=== PATIENT | male | born 1960 | race African-American/Black ===

== ENCOUNTER 2020-04-15 17:01 | Emergency (ER) | payer MEDICAID, OTHER ==
[~2020-04-15] VITALS: Ht 188 cm; Wt 79.1 kg
--- NOTE | 2020-04-15 17:18 | NUR ---
BREAK RN: THIS IS A 59 YO MALE PT TITUS [place] FROM OUTSIDE A BAR WHERE [facility] PT C/O CHEST PAIN, TENDER TO PALP. PT REPORTS PAIN IS "SHARP" AND "100" OUT OF 10. PT DROWSY WITH ETOH ODOR AND FALLS ASLEEP EASILY. PT AWAKENS EASILY TO NAME BEING CALLED. PT ADMITS TO DRINKING "HALF A PINT" TODAY. PT ANSWERING ALL QUESTIONS APPROPRIATELY. PT ON CONT BP, CARDIAC AND SPO2 MONITORS. CALL LIGHT WITHIN REACH.
--- NOTE | 2020-04-15 17:41 | NUR ---
REPORT RECEIVED FROM GEENA ACUNA. PT SLEEPING IN BED, NO DISTRESS. PT REMAINS ON MONITORS, VSS. MTF. CONT TO MONITOR.
--- NOTE | 2020-04-15 18:04 | NUR ---
MEAL TRAY ORDERED FOR PT.
--- NOTE | 2020-04-15 18:24 | NUR ---
PT GIVEN MEAL TRAY.
--- NOTE | 2020-04-15 19:58 | NUR ---
PT D/C'D PER ERMD ORDERS. PT WITH STEADY GAIT, ABLE TO CARE FOR SELF. HAS ALL OWN BELONGINGS UPON D/C.
[2020-04-15 20:02] VITALS: BP 107/67
== END 2020-04-15 20:15 | disposition home or self-care (01) ==
LOC: ED 19:30
DX: F10.229 Alcohol dependence with intoxication, unspecified (principal); R07.89 Other chest pain; I45.10 Unspecified right bundle-branch block; Y90.0 Blood alcohol level of less than 20 mg/100 ml
CPT/HCPCS: 93005; 99283

== ENCOUNTER 2020-04-15 21:19 | Inpatient (IN) | payer OTHER ==
[~2020-04-15] VITALS: Ht 188 cm; Wt 82.4 kg
--- NOTE | 2020-04-15 23:09 | NUR ---
assessment made. ERP at bedside.
[2020-04-15 23:43] LABS: BASOPHILS # (AUTO) 0.02 x10^3/uL (0-0.1); BASOPHILS % (AUTO) 0 % (0-1); EOSINOPHILS % (AUTO) 0 % (1-7); LYMPHOCYTES # (AUTO) 0.61 x10^3/uL (1-3.4); LYMPHOCYTES % (AUTO) 4 % (22-44); MD NO; MEAN CORPUSCULAR HEMOGLOBIN 29.8 pg (27.5-34.5); MEAN CORPUSCULAR HGB CONC 31.8 g/dL (33.2-36.2); MEAN CORPUSCULAR VOLUME 93.7 fL (81-97); MONOCYTES # (AUTO) 0.59 x10^3/uL (0.2-0.8); MONOCYTES % (AUTO) 4 % (2-9); NEUTROPHILS # (AUTO) 15.15 x10^3/uL (1.8-6.8); NEUTROPHILS % (AUTO) 93 % (42-75); PLATELET COUNT 326 x10^3/uL (130-400); RED BLOOD COUNT 4.65 x10^6/uL (4.38-5.82); RED CELL DISTRIBUTION WIDTH 15.9 % (9.4-14.8)
[2020-04-15 23:50] LABS: ALANINE AMINOTRANSFERASE 76 U/L (12-78); ALBUMIN 3.9 g/dL (3.4-5.0); ANION GAP 21 mmol/L (5-15); CALCIUM 8.3 mg/dL (8.5-10.1); CHLORIDE 103 mmol/L (98-107); CREATININE 1.29 mg/dL (0.7-1.3)
[2020-04-15 23:52] LABS: ALKALINE PHOSPHATASE 68 U/L (45-117); BILIRUBIN,TOTAL 0.9 mg/dL (0.2-1.0); TOTAL PROTEIN 7.7 g/dL (6.4-8.2)
[2020-04-16] MEDS ORDERED: DEXTROSE 50%, 50ML SYRINGE ONE (00:19)
[2020-04-16] MEDS ORDERED: DEXTROSE 50%, 50ML SYRINGE IVPush ONE (00:30)
[2020-04-16] MEDS ORDERED: MAGNESIUM SULFATE 1 GM, THIAMINE 100 MG, FOLIC ACID 1 MG, MVI ADULT 10 ML in SODIUM CHL... IV ONE (00:30)
[2020-04-16] MEDS ORDERED: SODIUM CHLORIDE FLUSH 10ML SYR IVF ONE (00:30)
--- NOTE | 2020-04-16 00:40 | NUR ---
PT TRANSFERRED TO THIS CARE AT 0030. FIRST CONTACT: PT SLUMPED OVER IN WHEELCHAIR BEING WHEELED BACK TO ROOM, PT ABLE TO STAND AND TRASNFERRED TO GURNEY WITH STAND BY ASSIST. PT SKIN COOL TO TOUCH BUT DRY, VSS, NAD, DENIES DIZZINESS, LOC, FALLS. PT PUPILS ARE APPROX 2MM, PERRLA AND GROSS NEURO INTACT, ANOx4, FCS AND ANSWERS ALL QUESTIONS APPROPRIATELY. PT STATES HE CAME INTO BECAUSE AFTER DRINKING TODAY HE STARTED TO FEEL A LITTLE FUNNY, PT SAYS ONCE HE WAS IN THE LOBBY THAT HIS "LEGS JUST STOPPED RESPONDING." PT STATES HE DRANK ABOUT 4.5 PINTS OF WHISKEY TODAY WITH A FRIEND. PT MEDICATED PER DEC, GIVEN WARM BLANKETS FOR COMFORT. PLACED ON BP, SPO2, ECG MONITORING.
[2020-04-16] MEDS ORDERED: ONDANSETRON 2MG/ML, 2ML ONE (01:14)
[2020-04-16] MEDS ORDERED: LORazepam 2 MG/ML, 1ML ONE (01:18)
[2020-04-16] MEDS ORDERED: LORazepam 2 MG/ML, 1ML IVPush PRN (01:30)
[2020-04-16] MEDS ORDERED: ONDANSETRON 2MG/ML, 2ML IVPush ONE ×2 (01:30)
[2020-04-16 01:31] LABS: PH, VENOUS 7.166 pH (7.320-7.420)
--- NOTE | 2020-04-16 01:32 | NUR ---
PT HANGING OVER EDGE OF [facility] UPON RN ENTERING ROOM, PROJECTILE VOMITTING ONTO THE FLOOR. FULL BODY TREMORS NOTED, MD NOTIFIED. PT MEDICATED PER DEC, ROOM AND PT CLEANED UP AND GIVEN FRESH WARM BLANKETS. PT NOW RESTING WITH EYES CLOSED DENIES ADDITIONAL NEEDS AT THIS TIME. WCTM
--- NOTE | 2020-04-16 01:35 | NUR ---
NC 2L PLACED ON PT WHILE RESTING TO MAINTAIN O2 SATURATION
[2020-04-16 01:41] LABS: ACETONE, SERUM Small (20mg/dL) (Negative)
[2020-04-16] MEDS ORDERED: SODIUM CHLORIDE 0.9% 1,000 ML IV ONE (02:16)
[2020-04-16] MEDS ORDERED: SODIUM CHLORIDE FLUSH 10ML SYR IVF PRN (02:30)
--- NOTE | 2020-04-16 02:42 | NUR ---
PT RESTING IN GURNEY, LIGHTS DIMMED FOR COMFORT, NAD, VSS, WCTM. WAITING ON ADMIT BED
--- NOTE | 2020-04-16 03:33 | NUR ---
PT RESTING IN GURNEY, EYES CLOSED, VSS, NAD, RESP WNL, WCTM. WAITING FOR ADMIT BED.
--- NOTE | 2020-04-16 04:43 | NUR ---
PT SITTING UP IN [facility] EATING SANDWICH AND CHIPS. PT GIVEN SPRITE PER REQUEST. PT VSS, NAD, SKIN COLR WNL WARM AND DRY. WCTM. WAITING FOR ADMIT BED.
[2020-04-16] MEDS ORDERED: POTASSIUM CHLORIDE 20 MEQ, MVI ADULT 10 ML, FOLIC ACID 1 MG, MAGNESIUM SULFATE 1 GM in ... IV SCH (05:25)
[2020-04-16] MEDS ORDERED: hydrALAzine 20 MG/ML, 1ML IVPush PRN (05:30)
[2020-04-16] MEDS ORDERED: DOCUSATE 100 MG CAPSULE PO PRN (05:30)
[2020-04-16] MEDS ORDERED: METHOCARBAMOL 500 MG TABLET PO PRN (05:30)
[2020-04-16] MEDS ORDERED: ONDANSETRON 2MG/ML, 2ML IVPush PRN (05:30)
[2020-04-16] MEDS ORDERED: GUAIFENESIN/DM 200-20MG, 10ML UDC PO PRN (05:30)
[2020-04-16] MEDS ORDERED: CHLORDIAZEPOXIDE 25 MG CAPSULE PO PRN ×3 (05:30)
[2020-04-16] MEDS ORDERED: LORazepam 2 MG/ML, 1ML IV PRN ×5 (05:30→09:30)
[2020-04-16] MEDS ORDERED: ASA/APAP/ CAFFEINE TABLET PO PRN (05:30)
[2020-04-16] MEDS ORDERED: CHLORDIAZEPOXIDE 10 MG CAPSULE PO PRN (05:30)
--- NOTE | 2020-04-16 05:35 | NUR ---
PT RESTING ON GURNEY, EYES CLOSED, RESP HEARD AND WNL, CONDITION UNCHANGED. WCTM. WAITING ON ADMIT BED.
[2020-04-16 06:12] LABS: BASOPHILS # (AUTO) 0.03 x10^3/uL (0-0.1); BASOPHILS % (AUTO) 0 % (0-1); EOSINOPHILS % (AUTO) 0 % (1-7); LYMPHOCYTES # (AUTO) 1.24 x10^3/uL (1-3.4); LYMPHOCYTES % (AUTO) 12 % (22-44); MD NO; MEAN CORPUSCULAR HEMOGLOBIN 29.6 pg (27.5-34.5); MEAN CORPUSCULAR HGB CONC 31.6 g/dL (33.2-36.2); MEAN CORPUSCULAR VOLUME 93.6 fL (81-97); MEAN PLATELET VOLUME 6.6 fL (7.4-10.4); MONOCYTES # (AUTO) 1.09 x10^3/uL (0.2-0.8); MONOCYTES % (AUTO) 10 % (2-9); NEUTROPHILS # (AUTO) 8.21 x10^3/uL (1.8-6.8); NEUTROPHILS % (AUTO) 78 % (42-75); PH, VENOUS 7.362 pH (7.320-7.420); PLATELET COUNT 284 x10^3/uL (130-400); RED BLOOD COUNT 4.01 x10^6/uL (4.38-5.82); RED CELL DISTRIBUTION WIDTH 15.6 % (9.4-14.8)
[2020-04-16 06:27] LABS: ALBUMIN 3.2 g/dL (3.4-5.0); ANION GAP 11 mmol/L (5-15); CALCIUM 8.1 mg/dL (8.5-10.1); CHLORIDE 106 mmol/L (98-107)
--- NOTE | 2020-04-16 06:29 | NUR ---
PT MEDICATED PER DEC, NAD, CONDITION UNCHANGED, WAITING ON ADMIT BED, WCTM.
[2020-04-16 06:33] LABS: ALANINE AMINOTRANSFERASE 65 U/L (12-78); ALKALINE PHOSPHATASE 56 U/L (45-117); BILIRUBIN, DIRECT 0.2 mg/dL (0.1-0.2); BILIRUBIN,INDIRECT 0.7 mg/dL (0.0-2.0); BILIRUBIN,TOTAL 0.9 mg/dL (0.2-1.0); CREATININE 1.11 mg/dL (0.7-1.3); TOTAL PROTEIN 6.4 g/dL (6.4-8.2); TROPONIN I < 0.015 ng/mL (0.000-0.045)
[2020-04-16] MEDS ORDERED: METOPROLOL TARTRATE 25 MG TAB ONE (06:34)
[2020-04-16] MEDS ORDERED: ENOXAPARIN 40 MG/0.4 ML ONE (06:34)
[2020-04-16] MEDS ORDERED: ACETAMINOPHEN 325 MG TABLET ONE ×2 (06:36→10:44)
[2020-04-16] MEDS: METOPROLOL TARTRATE 25 MG TAB PO SCH ×2 (06:38→18:33)
[2020-04-16] MEDS: ENOXAPARIN 40 MG/0.4 ML SQ SCH (06:38)
[2020-04-16] MEDS: ACETAMINOPHEN 325 MG TABLET PO PRN ×2 (06:38→10:46)
--- NOTE | 2020-04-16 07:05 | NUR ---
REPORT TO ASHWINI ACUNA, PT CARE TRANSFERRED AT THIS TIME.
--- NOTE | 2020-04-16 07:32 | NUR ---
PT RESTING CALMLY IN BED WITH EYES CLOSED. NO STATED NEEDS AT THIS TIME. WILL CONTINUE TO MONITOR.
--- NOTE | 2020-04-16 08:20 | NUR ---
PT CONTINUES TO REST CALMLY IN BED WITH EVEN RESP. NO STATED NEEDS. WILL CONTINUE TO MONITOR.
--- NOTE | 2020-04-16 09:00 | NUR ---
REPORT FROM ASHWINI RN. PT DROWSING. EASILY AWAKES. VSS. BGL 153. ORDERED BREAKFAST AND HOSPITAL BED. PT STS LEGS "FEEL MUCH BETTER". ON ASSESSMENT FOUND FLASK OF WHISKY STRAPPED TO LEG. REMOVED FROM PT, WILL GIVE TO SECURITY. PT ADMITS THAT HE WILL PROBABLY NOT STOP DRINKING. PT CALM, NO TREMORS NOTED. DENIES SEIZURE HX. VSS. CALL MAYO. CTM.
[2020-04-16] MEDS ORDERED: FAMOTIDINE 20 MG TABLET ONE (09:06)
[2020-04-16] MEDS ORDERED: LORazepam 0.5MG TABLET PO PRN (09:30)
[2020-04-16] MEDS ORDERED: LORazepam 1MG TABLET PO PRN ×3 (09:30)
[2020-04-16] MEDS ORDERED: GLUCAGON 1 MG IM PRN (09:30)
[2020-04-16] MEDS ORDERED: DEXTROSE 4 GM TAB.CHEW PO PRN (09:30)
[2020-04-16] MEDS ORDERED: DEXTROSE 50%, 50ML SYRINGE IVPush PRN (09:30)
[2020-04-16] MEDS: FAMOTIDINE 20 MG TABLET PO SCH ×2 (09:36→20:41)
--- NOTE | 2020-04-16 09:54 | NUR ---
security to bedside to take bottle of whiskey. pt moved to hosptial bed. oob w/ gait steady, stands easily. as
--- NOTE | 2020-04-16 10:16 | NUR ---
byron gibbs from pharm. given breakfast. as
[2020-04-16] MEDS: FOLIC ACID 1 MG TABLET PO SCH (10:46)
[2020-04-16] MEDS: MULTIVITAMIN 1 TABLET PO SCH (10:46)
--- NOTE | 2020-04-16 11:20 | NUR ---
report to deandra washburn. as
[2020-04-16 11:50] VITALS: BP 115/73
[2020-04-16] MEDS: LACTATED RINGERS 1,000 ML IV SCH ×2 (11:50→20:40)
[2020-04-16 14:49] VITALS: BP 120/80
[2020-04-16 15:31] LABS: TROPONIN I < 0.015 ng/mL (0.000-0.045)
[2020-04-16] MEDS: SODIUM CHLORIDE FLUSH 10ML SYR IVF SCH (20:41)
[2020-04-16 20:43] VITALS: BP 136/84
[2020-04-17 01:44] VITALS: BP 141/89
[2020-04-17 06:09] LABS: BASOPHILS # (AUTO) 0.03 x10^3/uL (0-0.1); BASOPHILS % (AUTO) 0 % (0-1); EOSINOPHILS # (AUTO) 0.03 x10^3/uL (0-0.4); EOSINOPHILS % (AUTO) 0 % (1-7); LYMPHOCYTES # (AUTO) 1.95 x10^3/uL (1-3.4); LYMPHOCYTES % (AUTO) 28 % (22-44); MD NO; MEAN CORPUSCULAR HEMOGLOBIN 30.1 pg (27.5-34.5); MEAN CORPUSCULAR HGB CONC 32.3 g/dL (33.2-36.2); MEAN CORPUSCULAR VOLUME 93.4 fL (81-97); MEAN PLATELET VOLUME 6.9 fL (7.4-10.4); MONOCYTES # (AUTO) 0.66 x10^3/uL (0.2-0.8); MONOCYTES % (AUTO) 10 % (2-9); NEUTROPHILS # (AUTO) 4.21 x10^3/uL (1.8-6.8); NEUTROPHILS % (AUTO) 61 % (42-75); PLATELET COUNT 237 x10^3/uL (130-400); RED BLOOD COUNT 3.98 x10^6/uL (4.38-5.82); RED CELL DISTRIBUTION WIDTH 15.6 % (9.4-14.8)
[2020-04-17 06:16] LABS: ANION GAP 4 mmol/L (5-15); CALCIUM 8.5 mg/dL (8.5-10.1); CHLORIDE 107 mmol/L (98-107)
[2020-04-17 06:17] LABS: CREATININE 0.85 mg/dL (0.7-1.3)
[2020-04-17] MEDS: ENOXAPARIN 40 MG/0.4 ML SQ SCH (06:26)
[2020-04-17] MEDS: METOPROLOL TARTRATE 25 MG TAB PO SCH (06:26)
[2020-04-17] MEDS: LACTATED RINGERS 1,000 ML IV SCH (06:27)
[2020-04-17] MEDS ORDERED: THIAMINE 100MG TABLET PO ONE (08:00)
[2020-04-17 08:16] VITALS: BP 153/87
[2020-04-17] MEDS: FOLIC ACID 1 MG TABLET PO SCH (08:19)
[2020-04-17] MEDS: FAMOTIDINE 20 MG TABLET PO SCH (08:19)
[2020-04-17] MEDS: MULTIVITAMIN 1 TABLET PO SCH (08:19)
[2020-04-17] MEDS: SODIUM CHLORIDE FLUSH 10ML SYR IVF SCH (08:20)
[2020-04-17] MEDS ORDERED: THIAMINE 100 MG in DEXTROSE 5% 50 ML IVPB SCH (09:00)
[2020-04-17] MEDS ORDERED: POTASSIUM PHOSPHATE 22 MEQ in SODIUM CHLORIDE 0.9% 500 ML IV ONE (09:30)
[2020-04-17] MEDS ORDERED: THIAMINE 100MG TABLET PO SCH (09:30)
[2020-04-17] MEDS ORDERED: OMNIPAQUE 350 MG/ML, 100ML BOTTLE ONE (11:50)
[2020-04-17] MEDS ORDERED: THIA100T67 PO (12:06)
[2020-04-17] MEDS ORDERED: METO25TA35 PO (12:06)
[2020-04-17] MEDS ORDERED: FOLI-17 PO (12:06)
== END 2020-04-17 12:49 | disposition home or self-care (01) | DRG 640 ==
LOC: ED 21:39 → EDIP 04-16 02:16 → 5SO 04-16 11:38 → DCLOUNGE 04-17 12:47
PROVIDERS: ADMIT Internal Medicine; ATTEND Internal Medicine
DX: E16.2 Hypoglycemia, unspecified (principal); N17.0 Acute kidney failure with tubular necrosis; E87.2 Acidosis; R00.0 Tachycardia, unspecified; F10.129 Alcohol abuse with intoxication, unspecified; D72.829 Elevated white blood cell count, unspecified; D64.9 Anemia, unspecified; E83.39 Other disorders of phosphorus metabolism; I10 Essential (primary) hypertension
CPT/HCPCS: 36415; J7042; 74170; 80048; 80053; 80076; 80307; 82010; 82803; 82962; 83036; 83525; 83735; 83930; 84100; 84439; 84443; 84484; 84681; 85025; 99291; G0378; J1650; J2405; J3411; J3475; J3480; Q9967; J2060; J7030; J7040; J7120

== ENCOUNTER 2020-04-20 03:29 | Emergency (ER) | payer SELFPAY ==
[~2020-04-20] VITALS: Ht 188 cm; Wt 80.0 kg
[~2020-04-20 03:29] MED LIST: FOLI-17 PO; METO25TA35 PO; THIA100T67 PO
--- NOTE | 2020-04-20 03:39 | NUR ---
pt BIB [facility] for palpitations. [facility] reports that pt said they resolved enroute and then stated he needed a general check up because he didnt feel right. Current only symptom is "palpitations". pt denies dizziness, SOB, or cough. VSS. pt placed on BP, SPO2, ECG monitoring. Ayah RHODES at for eval and poc. WCEZRA.
--- NOTE | 2020-04-20 04:15 | NUR ---
PT TO AND FROM CT WITHOUT ISSUE OR CHANGE IN CONDITION. GIVEN WARM BLANKETS FOR COMFORT, APPEARS COMFORTABLE. NAD. WCTM. WAITING FOR TEST RESULTS.
[2020-04-20 04:32] LABS: ALBUMIN 3.5 g/dL (3.4-5.0); ANION GAP 6 mmol/L (5-15); CALCIUM 8.7 mg/dL (8.5-10.1); CHLORIDE 109 mmol/L (98-107)
[2020-04-20 04:36] LABS: TROPONIN I < 0.015 ng/mL (0.000-0.045)
[2020-04-20 04:37] LABS: BASOPHILS # (AUTO) 0.03 x10^3/uL (0-0.1); BASOPHILS % (AUTO) 1 % (0-1); EOSINOPHILS # (AUTO) 0.03 x10^3/uL (0-0.4); EOSINOPHILS % (AUTO) 1 % (1-7); LYMPHOCYTES # (AUTO) 1.98 x10^3/uL (1-3.4); LYMPHOCYTES % (AUTO) 42 % (22-44); MD NO; MEAN CORPUSCULAR HGB CONC 32.3 g/dL (33.2-36.2); MEAN PLATELET VOLUME 7.1 fL (7.4-10.4); MONOCYTES # (AUTO) 0.61 x10^3/uL (0.2-0.8); MONOCYTES % (AUTO) 13 % (2-9); NEUTROPHILS # (AUTO) 2.05 x10^3/uL (1.8-6.8); NEUTROPHILS % (AUTO) 44 % (42-75); PLATELET COUNT 266 x10^3/uL (130-400); RED BLOOD COUNT 4.09 x10^6/uL (4.38-5.82); RED CELL DISTRIBUTION WIDTH 15.6 % (9.4-14.8)
[2020-04-20 04:42] VITALS: BP 113/64
--- NOTE | 2020-04-20 05:01 | NUR ---
Patient given discharge instructions and they have confirmed that they understand the instructions. Patient ambulatory with steady gait. DENIES ADDITIONAL QUESTIONS OR NEEDS AT THIS TIME. NAD, VSS. NO BELONGINGS LEFT IN ROOM AT TIME OF DC.
== END 2020-04-20 05:09 | disposition home or self-care (01) ==
LOC: ED 04:37
DX: R00.2 Palpitations (principal); R07.89 Other chest pain; I45.10 Unspecified right bundle-branch block; I21.9 Acute myocardial infarction, unspecified; F10.129 Alcohol abuse with intoxication, unspecified; Z72.9 Problem related to lifestyle, unspecified; Y90.9 Presence of alcohol in blood, level not specified
CPT/HCPCS: 36415; 71046; 80048; 82040; 82962; 84484; 85025; 93005; 99285

== ENCOUNTER 2020-10-14 00:15 | Emergency (ER) | payer MEDICAID ==
[~2020-10-14] VITALS: Ht 185.4 cm; Wt 76.0 kg
--- NOTE | 2020-10-14 00:22 | NUR ---
bib ems from detention for heart pounding and "fluttering" for years, no other changes/ concerns wants labs. pt denies dizziness, alicia, n/v, minor diarrhea, pt nad, states he drank this evening. provided warm blankets for comfort. pt placed spo2/bp/ecg monitoring at this time. michel lemus at bs for eval and poc. tm.
[2020-10-14 00:43] LABS: BASOPHILS % (AUTO) 1 % (0-1); EOSINOPHILS % (AUTO) 0 % (1-7); LYMPHOCYTES % (AUTO) 22 % (22-44); MEAN CORPUSCULAR HEMOGLOBIN 28.6 pg (27.5-34.5); MEAN CORPUSCULAR HGB CONC 32.9 g/dL (33.2-36.2); MEAN PLATELET VOLUME 6.9 fL (7.4-10.4); MONOCYTES % (AUTO) 7 % (2-9); NEUTROPHILS % (AUTO) 70 % (42-75); PLATELET COUNT 289 x10^3/uL (130-400); RED BLOOD COUNT 4.76 x10^6/uL (4.38-5.82); RED CELL DISTRIBUTION WIDTH 13.9 % (9.4-14.8)
[2020-10-14 00:46] LABS: MD NO
[2020-10-14 00:52] LABS: ALBUMIN 3.7 g/dL (3.4-5.0); ANION GAP 8 mmol/L (5-15); CALCIUM 8.8 mg/dL (8.5-10.1); CHLORIDE 108 mmol/L (98-107); CREATININE 0.76 mg/dL (0.7-1.3)
[2020-10-14 00:56] LABS: TROPONIN I 0.017 ng/mL (0.000-0.045)
--- NOTE | 2020-10-14 01:13 | NUR ---
Covering primary for break, pt sleeping, RR equal and unlabored. Will continue to monitor.
[2020-10-14 01:43] VITALS: BP 132/77
--- NOTE | 2020-10-14 01:44 | NUR ---
Patient given discharge instructions and they have confirmed that they understand the instructions. Patient ambulatory with steady gait. provided taxi voucher, nad, denies additional needs, no personal belongings left in room after dc.
== END 2020-10-14 02:10 | disposition home or self-care (01) ==
LOC: ED 01:17
DX: R00.2 Palpitations (principal); F10.120 Alcohol abuse with intoxication, uncomplicated; I45.10 Unspecified right bundle-branch block; R07.89 Other chest pain; Y90.9 Presence of alcohol in blood, level not specified; Z72.9 Problem related to lifestyle, unspecified
CPT/HCPCS: 36415; 71045; 80048; 82040; 84484; 85025; 93005; 99285

== ENCOUNTER 2020-10-15 23:07 | Emergency (ER) | payer MEDICAID ==
[~2020-10-15] VITALS: Ht 182.9 cm; Wt 80.0 kg
[2020-10-15 23:56] LABS: BASOPHILS % (AUTO) 1 % (0-1); EOSINOPHILS % (AUTO) 1 % (1-7); LYMPHOCYTES % (AUTO) 36 % (22-44); MEAN CORPUSCULAR HEMOGLOBIN 28.4 pg (27.5-34.5); MEAN CORPUSCULAR HGB CONC 33.3 g/dL (33.2-36.2); MEAN PLATELET VOLUME 7.4 fL (7.4-10.4); MONOCYTES % (AUTO) 8 % (2-9); NEUTROPHILS % (AUTO) 55 % (42-75); PLATELET COUNT 258 x10^3/uL (130-400); RED BLOOD COUNT 4.59 x10^6/uL (4.38-5.82)
[2020-10-16] LABS: ALANINE AMINOTRANSFERASE 35 U/L (12-78); ALBUMIN 3.5 g/dL (3.4-5.0); ANION GAP 7 mmol/L (5-15); CALCIUM 8.7 mg/dL (8.5-10.1); CHLORIDE 107 mmol/L (98-107); CREATININE 0.89 mg/dL (0.7-1.3)
[2020-10-16 00:10] LABS: ALKALINE PHOSPHATASE 70 U/L (45-117); BILIRUBIN,TOTAL 0.5 mg/dL (0.2-1.0); TROPONIN I < 0.015 ng/mL (0.000-0.045)
--- NOTE | 2020-10-16 00:11 | NUR ---
PT RESTING IN BED, PT WITH NO CURRENT WANTS OR NEEDS. PT BREATHS EQUAL AND UNLABORED. PT ON MONITOR WITH VSS.
[2020-10-16 00:29] LABS: MD SCAN
[2020-10-16 00:42] VITALS: BP 128/69
== END 2020-10-16 01:04 | disposition home or self-care (01) ==
LOC: ED 23:39
DX: R07.2 Precordial pain (principal); R00.2 Palpitations; I45.10 Unspecified right bundle-branch block
CPT/HCPCS: 36415; 71045; 80053; 84443; 84484; 85025; 93005; 99285

== ENCOUNTER 2020-10-17 02:07 | Emergency (ER) | payer MEDICAID ==
[~2020-10-17] VITALS: Ht 182.9 cm; Wt 95.0 kg
[2020-10-17 02:20] VITALS: BP 147/89
--- NOTE | 2020-10-17 02:23 | NUR ---
BIB [facility] WITH CC OF BEING COLD, NO MEDICAL COMPLAINT. PT GIVEN BLANKET
--- NOTE | 2020-10-17 02:35 | NUR ---
pt non compliant with wearing mask. multiple request for pt to wear mask with staff in room, pt would place gown over face and mumble or say "I'm going I'm going" and fumble with hands.
== END 2020-10-17 02:38 | disposition home or self-care (01) ==
LOC: ED 02:17
DX: Z00.00 Encounter for general adult medical examination without abnormal findings (principal); Z72.9 Problem related to lifestyle, unspecified
CPT/HCPCS: 99283

== ENCOUNTER 2020-11-09 02:19 | Emergency (ER) | payer MEDICAID ==
[~2020-11-09] VITALS: Ht 190.5 cm; Wt 75.0 kg
[~2020-11-09 02:19] MED LIST changes: -FOLI-17 PO; +FOLI1TAB32 PO
[2020-11-09] MEDS ORDERED: THIAMINE 100MG TABLET PO ONE (02:30)
--- NOTE | 2020-11-09 02:35 | NUR ---
Pt BIB[facility] from [facility] for c/o palpitations. Pt denies CP or SOB. Pt states drinking tonight. Pt denies medical hx. Pt denies pain. Pt A&O. On monitor, EKG completed.
[2020-11-09] MEDS ORDERED: THIAMINE 100MG TABLET ONE (02:42)
[2020-11-09 03:00] VITALS: BP 144/74
[2020-11-09 03:22] LABS: BASOPHILS % (AUTO) 1 % (0-1); EOSINOPHILS % (AUTO) 0 % (1-7); LYMPHOCYTES % (AUTO) 33 % (22-44); MEAN CORPUSCULAR HEMOGLOBIN 28.5 pg (27.5-34.5); MEAN CORPUSCULAR HGB CONC 33.1 g/dL (33.2-36.2); MEAN PLATELET VOLUME 6.5 fL (7.4-10.4); MONOCYTES % (AUTO) 7 % (2-9); NEUTROPHILS % (AUTO) 59 % (42-75); PLATELET COUNT 394 x10^3/uL (130-400); RED BLOOD COUNT 4.59 x10^6/uL (4.38-5.82)
[2020-11-09 03:26] LABS: MD NO
[2020-11-09 03:31] LABS: ALANINE AMINOTRANSFERASE 75 U/L (12-78); ALBUMIN 3.8 g/dL (3.4-5.0); ANION GAP 11 mmol/L (5-15); CALCIUM 8.6 mg/dL (8.5-10.1); CHLORIDE 108 mmol/L (98-107)
[2020-11-09 03:42] LABS: ALKALINE PHOSPHATASE 67 U/L (45-117); BILIRUBIN,TOTAL 0.3 mg/dL (0.2-1.0); TOTAL PROTEIN 7.4 g/dL (6.4-8.2)
[2020-11-09 03:43] LABS: T4 (THYROXINE) 12.1 mcg/dL (4.5-12.1)
--- NOTE | 2020-11-09 04:09 | NUR ---
Patient given discharge instructions and they have confirmed that they understand the instructions. Patient ambulatory with steady gait.
== END 2020-11-09 04:15 | disposition home or self-care (01) ==
LOC: ED 02:46
DX: R00.2 Palpitations (principal); F10.220 Alcohol dependence with intoxication, uncomplicated; Z72.9 Problem related to lifestyle, unspecified; F17.290 Nicotine dependence, other tobacco product, uncomplicated; I45.10 Unspecified right bundle-branch block; Y90.0 Blood alcohol level of less than 20 mg/100 ml
CPT/HCPCS: 36415; 80053; 80320; 83735; 84436; 84443; 85025; 93005; 99284; 99406; G0480

== ENCOUNTER 2021-01-20 04:34 | Emergency (ER) | payer MEDICAID ==
[~2021-01-20] VITALS: Ht 185.4 cm; Wt 80.0 kg
--- NOTE | 2021-01-20 04:42 | NUR ---
pt is a well known male to this er. bib ems from [facility] for cc of chest pain after "my hunter left me" states it is centered on his chest, came on suddenly, pulses 2+. placed on spo2/bp/ecg monitoring at this time. provided warm blankets for comfort, bed in lowest, rails engaged, call light on lap, wctm. YARITZA RHODES AT BS FOR EVAL AND POC
--- NOTE | 2021-01-20 05:05 | NUR ---
PT REFUSING ALL LABS AT THIS TIME. RESTING ON GURNEY, NAD, TALKING TO SELF, EVEN AND UNLABORED RESPIRATIONS, VSS, WCTM.
[2021-01-20 05:24] VITALS: BP 124/77
--- NOTE | 2021-01-20 05:48 | NUR ---
Patient given discharge instructions and they have confirmed that they understand the instructions. Patient ambulatory with steady gait. nad, denies additional questions or needs at this time. provided taxi voucher
== END 2021-01-20 05:49 | disposition home or self-care (01) ==
LOC: ED 05:12
DX: R07.89 Other chest pain (principal); R06.00 Dyspnea, unspecified; F10.220 Alcohol dependence with intoxication, uncomplicated; I25.2 Old myocardial infarction; Y90.0 Blood alcohol level of less than 20 mg/100 ml
CPT/HCPCS: 71045; 93005; 99283

== ENCOUNTER 2021-01-25 01:22 | Emergency (ER) | payer MEDICAID ==
[~2021-01-25] VITALS: Ht 188 cm; Wt 76.9 kg
[2021-01-25 01:25] VITALS: BP 137/82
--- NOTE | 2021-01-25 01:33 | NUR ---
PT BIBA. PER EMS PT HAS PALPITATIONS AFTER DRINKING 5 SHOTS TONIGHT, PT STATES HE HAS HX OF AFIB BUT IS NON COMPLIANT WITH BLOOD THINNING MEDICATIONS. PER EMS PT REFUSED ANY IV OR 12 LEAD. PT STATES HE HAS CHEST DISCOMFORT 5/10 THAT FEELS LIKE PRESSURE. PT RESTING IN [facility], MONITORING IN PLACE, EKG DONE UPON ARRIVAL, DR. DOYLE AT BEDSIDE AT THIS TIME FOR EVALUATION, NADN AT THIS TIME, EMILIA.
[2021-01-25 02:01] LABS: ALBUMIN 3.1 g/dL (3.4-5.0); ANION GAP 6 mmol/L (5-15); CHLORIDE 109 mmol/L (98-107); CREATININE 0.78 mg/dL (0.7-1.3)
[2021-01-25 02:02] LABS: BASOPHILS % (AUTO) 1 % (0-1); EOSINOPHILS % (AUTO) 2 % (1-7); LYMPHOCYTES % (AUTO) 53 % (22-44); MEAN CORPUSCULAR HEMOGLOBIN 28.2 pg (27.5-34.5); MEAN CORPUSCULAR HGB CONC 32.4 g/dL (33.2-36.2); MEAN PLATELET VOLUME 6.9 fL (7.4-10.4); MONOCYTES % (AUTO) 13 % (2-9); NEUTROPHILS % (AUTO) 31 % (42-75); PLATELET COUNT 242 x10^3/uL (130-400); RED BLOOD COUNT 4.29 x10^6/uL (4.38-5.82); RED CELL DISTRIBUTION WIDTH 17.3 % (9.4-14.8)
[2021-01-25 02:05] LABS: TROPONIN I < 0.015 ng/mL (0.000-0.045)
--- NOTE | 2021-01-25 02:11 | NUR ---
BEDSIDE REPORT TO ARMAND FLOWERS.
[2021-01-25 02:13] LABS: MD NO
[2021-01-25] MEDS ORDERED: POTASSIUM CHLORIDE 20 MEQ TAB.ER.PRT PO ONE (02:30)
== END 2021-01-25 02:58 | disposition home or self-care (01) ==
LOC: ED 02:43
DX: R00.2 Palpitations (principal); F10.10 Alcohol abuse, uncomplicated; R07.89 Other chest pain; R94.31 Abnormal electrocardiogram [ECG] [EKG]; I25.2 Old myocardial infarction; Y90.0 Blood alcohol level of less than 20 mg/100 ml
CPT/HCPCS: 36415; 71045; 80048; 80320; 82040; 84484; 85025; 93005; 99285; G0480

== ENCOUNTER 2021-01-29 23:25 | Emergency (ER) | payer MEDICAID ==
[~2021-01-29] VITALS: Ht 190.5 cm; Wt 78.0 kg
[2021-01-29 23:35] VITALS: BP 130/97
--- NOTE | 2021-01-29 23:49 | NUR ---
CC OF HEART PALPITATIONS "EVERY DAY" AND PT REFUSING TO [place] WHEN ASKED FOLLOW UP QUESTIONS. EMS REPORTS PT HAS HAD HEART PALPITATIONS FOR 40 YEARS. PTS BOYFRIEND ALSO TAKEN BY AMBULANCE TO [facility] AND PT WAS BEING KICKED OUT OF [place] HE WAS AT. PT DEMANDED AN AMBULANCE GET CALLED FOR HIM. PER EMS PT VERY RUDE EN [place] CALLING EMS RACIAL SLURS. UPON ARRIVAL TO HOSPITAL PT REFUSING TO ANSWER QUESTIONS, MAKING STATEMENTS SUCH "ME AND MY MAN" AND "MY MAN" AND NEVER FINISHING THE STATEMENT. PT NEEDING FREQUENT DIRECTION FOR INTIAL ASSESSMENT. PT WEARING SUNGLASSES IN DARK ROOM, NOT WANTING LIGHTS ON. PT ARRIVED WITHOUT SHIRT.
[2021-01-30] MEDS ORDERED: SODIUM CHLORIDE FLUSH 10ML SYR IVF ONE
[2021-01-30 00:05] LABS: BASOPHILS % (AUTO) 1 % (0-1); EOSINOPHILS % (AUTO) 1 % (1-7); LYMPHOCYTES % (AUTO) 37 % (22-44); MEAN CORPUSCULAR HEMOGLOBIN 28.9 pg (27.5-34.5); MEAN CORPUSCULAR HGB CONC 32.8 g/dL (33.2-36.2); MEAN PLATELET VOLUME 6.6 fL (7.4-10.4); MONOCYTES % (AUTO) 8 % (2-9); NEUTROPHILS % (AUTO) 54 % (42-75); PLATELET COUNT 343 x10^3/uL (130-400); RED BLOOD COUNT 4.87 x10^6/uL (4.38-5.82)
[2021-01-30 00:09] LABS: MD NO
[2021-01-30 00:12] LABS: ALANINE AMINOTRANSFERASE 33 U/L (12-78); ALBUMIN 3.4 g/dL (3.4-5.0); ANION GAP 3 mmol/L (5-15); CALCIUM 8.2 mg/dL (8.5-10.1); CHLORIDE 111 mmol/L (98-107)
[2021-01-30 00:17] LABS: ALKALINE PHOSPHATASE 67 U/L (45-117); BILIRUBIN,TOTAL 0.9 mg/dL (0.2-1.0); TOTAL PROTEIN 7.3 g/dL (6.4-8.2); TROPONIN I < 0.015 ng/mL (0.000-0.045)
--- NOTE | 2021-01-30 00:46 | NUR ---
Patient/Caregiver given discharge instructions and they have confirmed that they understand the instructions. Patient ambulatory with steady gait.
== END 2021-01-30 00:47 | disposition home or self-care (01) ==
LOC: ED 23:52
DX: R00.2 Palpitations (principal); I25.2 Old myocardial infarction
CPT/HCPCS: 36415; 80053; 83605; 84484; 85025; 93005; 99284